=== PATIENT | female | born 1980 | race Caucasian/White ===

== ENCOUNTER → 2017-07-06 | Outpatient (CLI) | payer SELFPAY | PROVIDERS: Family Provider Family Medicine; PCP Family Medicine; Visit Provider Family Medicine | DX: I73.00 Raynaud's syndrome without gangrene (principal) | CPT/HCPCS: 86038 ==

== ENCOUNTER → 2018-04-02 08:01 | Outpatient (CLI) | payer OTHER, SELFPAY ==
[2018-04-02 10:23] LABS: Add Manual Diff / Slide Review NO; Basophils Percent Auto 1.1 % (0-2); Eosinophils Percent Auto 5.6 % (2-4); Hematocrit 39.2 % (36-46); Hemoglobin 13.3 g/dL (12.0-16.0); Lymphocytes Percent Auto 34.1 % (25-40); Mean Corpuscular Volume 94.2 fL (80-100); Monocytes Percent Auto 7.2 % (3-14); Neutrophils Absolute Auto 4100 /uL (3000-5900); Platelet Count 221 X10^3/uL (150-400); Red Blood Cell Count 4.16 X10^6/uL (4.0-5.2); Red Cell Distribution Width 13.2 % (11.6-14.8); White Blood Cell Count 7.8 X10^3/uL (4.5-11.0)
[2018-04-02 10:43] LABS: Appearance Urine UA CLEAR; Bilirubin Urine UA NEGATIVE (NEGATIVE); Color Urine UA YELLOW; Glucose Urine UA NEGATIVE (Normal); Ketones Urine UA NEGATIVE (NEGATIVE); Leukocyte Esterase Urine UA NEGATIVE (NEGATIVE); Nitrite Urine UA Negative (Negative); Occult Blood Urine UA TRACE-LYSED (Negative); Protein Urine UA TRACE (Negative); Specific Gravity Urine UA 1.025 (1.000-1.035); Urobilinogen Urine UA 0.2 E.U./dL (0.2)
[2018-04-02 10:47] LABS: Erythrocyte Sedimentation Rate 4 MM/HR (0-20)
[2018-04-02 10:54] LABS: Alanine Aminotransferase 26 IU/L (9-52); Albumin 4.3 g/dL (3.5-5.0); Albumin Globulin Ratio 1.5 (1.0-2.8); Alkaline Phosphatase 61 U/L (38-126); Aspartate Aminotransferase 25 IU/L (14-36); Bilirubin Total 0.5 mg/dL (0.2-1.3); Blood Urea Nitrogen 14 mg/dL (7-17); Calcium 9.4 mg/dL (8.4-10.2); Carbon Dioxide 23 mmol/L (22-32); Chloride 107 mmol/L (98-107); Cholesterol 169 mg/dL (140-199); Estimated Glomerular Filt Rate > 60.0 mL/min (>60); Globulin 2.9 g/dL (1.7-4.1); Glucose 91 mg/dL (70-100); HDL Cholesterol 53 mg/dL (40-60); HEMOLYSIS 41 (0-50); LDL Cholesterol Calculated 104 mg/dL (<100); Potassium 4.3 mmol/L (3.4-5.1); Sodium 143 mmol/L (137-145); Total Protein 7.2 g/dL (6.3-8.2); Triglycerides 60 mg/dL (35-150)
[2018-04-02 10:55] LABS: C-Reactive Protein Quant < 0.5 mg/dL (<1.0); Rheumatoid Factor < 8.6 IU/mL (<12.0)
[2018-04-02 11:02] LABS: Bacteria Urine Few (2-10); Culture Indicated Urine Cult Not Indicated; RBC Urine 0-1/HPF (0-5/HPF); Squamous Epithelial Cell Urine 5-10 /HPF; WBC Urine 1-5/HPF (0-5/HPF)
[2018-04-02 12:33] LABS: TSH w/ Reflex to FT4 2.77 uIU/mL (0.47-4.68)
[2018-04-03 18:03] LABS: ANA Screen, IFA Negative (Negative)
== END ==
PROVIDERS: PCP Family Medicine; Visit Provider Nurse Practitioner Family
DX: I73.00 Raynaud's syndrome without gangrene (principal)
CPT/HCPCS: 36415; 80053; 80061; 81001; 84443; 85025; 85651; 86038; 86140; 86430

== ENCOUNTER 2019-06-17 10:00 | Emergency (ER) | payer OTHER, MEDICAID, SELFPAY ==
--- NOTE | 2019-06-17 10:09 | DI.RAD.S_ITS ---
PROCEDURE: XR KNEE LT 3V INDICATIONS: injury/pain TECHNIQUE: 3 views of the knee were acquired. COMPARISON: None. FINDINGS: Bones: Mild tricompartment osteoarthritis is seen the prominent a medial femoral tibial compartment. No fractures or dislocations. No suspicious bony lesions. Soft tissues: No joint effusion. No suspicious soft tissue calcifications. IMPRESSION: No acute left knee fracture or dislocation. Mild tricompartmental osteoarthritis. Dictated by: Aime Gloria M.D. on 06/17/2019 at 10:54 Approved by: Aime Gloria M.D. on 06/17/2019 at 10:55
[2019-06-17 10:11] VITALS: BP 137/93; PULSE 90; RESP 14; TEMP 36.8; O2SAT 100
--- NOTE | 2019-06-17 10:27 | ED_ITS ---
HPI - Extremity Injury (Lower) General Chief Complaint: Extremity Injury, Lower Stated Complaint: Left knee pain Time Seen by Provider: 06/17/19 10:04 Source: patient Mode of arrival: Wheelchair History of Present Illness HPI Narrative: 39-year-old female nonsmoker with noncontributory medical history presents with severe left knee pain after an injury while performing [employer]. 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 Patient felt up pop and significant pain on her medial left knee. She has swelling and and inability to straighten her leg. She cannot weight bear and has significant pain. She denies any numbness, tingling or weakness. She denies any history of knee pain MD complaint: knee injury Onset (ago): hour(s) Type of Injury: hyperextension Place: other Severity: moderate Relieving factors: rest Exacerbating factors: weight bearing, movement and palpation Context: direct blow Associated symptoms: snap/pop sensation, swelling and unable to bear weight Other symptoms: none Treatments prior to arrival: cold therapy Related Data Home Medications Medication Instructions Recorded Confirmed multivitamin 1 tab PO DAILY #0 01/25/13 06/17/19 albuterol sulfate [Ventolin HFA] 1 puff INHALATION PRN PRN 06/17/19 06/17/19 alprazolam 0.125 mg PO DAILY PRN 06/17/19 06/17/19 Previous Rx's Medication Instructions Recorded oxycodone 5 mg PO Q4-6H PRN #10 tab 06/17/19 Allergies Allergy/AdvReac Type Severity Reaction Status Date / Time ibuprofen [IBUPROFEN] Allergy Severe PT ONLY Verified 04/19/18 15:45 HAS ONE KIDNEY ciprofloxacin [CIPROFLOXACIN] Allergy Mild DIZZINESS Verified 04/19/18 15:45 acetaminophen [From [facility]] AdvReac Mild Nausea/ Verified 04/19/18 15:45 hot flashes hydrocodone [From [facility]] AdvReac Mild Nausea/ Verified 04/19/18 15:45 hot flashes Review of Systems Constitutional Constitutional: Denies chills, Denies fatigue, Denies fever(s), Denies frequent falls, Denies lethargy and Denies weakness Eyes Eyes: Denies change in vision, Denies eye discharge, Denies irritation and Denies loss of vision ENT Ears, Nose, Mouth, and Throat: Denies change in voice, Denies dizziness, Denies neck pain, Denies sore throat and Denies throat swelling Cardiovascular Cardiovascular: Denies chest pain, Denies irregular heart rhythm, Denies lightheadedness, Denies palpitations, Denies dyspnea, Denies dyspnea on exertion and Denies orthopnea Respiratory Respiratory: Denies cough, Denies dyspnea, Denies dyspnea on exertion and Denies wheezing Gastrointestinal Gastrointestinal: Denies abdominal pain, Denies change in bowel habits, Denies diarrhea, Denies nausea and Denies vomiting Genitourinary Genitourinary: Denies hematuria, Denies flank pain, Denies urinary incontinence and Denies urinary urgency Musculoskeletal Musculoskeletal: Denies back pain, Reports joint swelling, Reports limited range of motion, Denies muscle weakness, Denies neck pain, Denies numbness and Denies tingling Integumentary/Breasts Skin/Breast: Denies pruritus, Denies erythema, Denies rash and Denies wounds Neurologic Neurologic: Denies behavioral changes, Denies confusion, Denies dizziness, Denies frequent falls, Denies loss of vision, Denies numbness, Denies tingling and Denies weakness Psychiatric Psychiatric: Denies anxiety, Denies behavioral changes, Denies confusion, Denies depression, Denies homicidal ideation and Denies suicidal ideation Endocrine Endocrine: Denies fatigue, Denies flushing and Denies palpitations Hematologic/Lymphatic Hematologic/Lymphatic: Denies easy bruising Allergic/Immunologic Allergic/Immunologic: Denies urticaria, Denies throat swelling and Denies wheezing [facility] Medical History Kidney disease (Resolved 1997) Shoulder pain (Chronic 2012) Surgical History History of nephrectomy (Resolved 1999) Status post breast augmentation (Resolved 12/2004) Status post breast augmentation (Resolved 12/2015) Family History Child Age: 8 Asthma Father Age: 79 Cancer Diabetes mellitus Heart disease Hypertension High cholesterol Mother Alzheimer's disease Osteoporosis Social History Smoking Status: Former smoker Family History Child Age: 8 Asthma Father Age: 79 Cancer Diabetes mellitus Heart disease Hypertension High cholesterol Mother Alzheimer's disease Osteoporosis Social History Smoking Status: Former smoker Exam Narrative Exam Narrative: GEN: AOx3 and in mild distress EYES: Pupils are equal, round, and reactive to light and accommodation. Extraoccular muscles are intact bilaterally. There is no subconjunctival hemorrhage or exudate. CHEST: Lungs are clear to auscultation bilaterally and free of wheezes, rales, or rhonchi. Heart rate is regular rhythm, there are no murmurs, clicks, rubs, or gallops. There is no chest wall tenderness. ABD: Abdomen is soft and nontender. There is no guarding or rebound. Bowel sounds are normal in all 4 quadrants. There is no mass or organomegaly. EXT: Decreased range of motion secondary to pain, mild effusion with significant tenderness to palpation along the medial joint line. Neurovascularly intact, closed, isolated SKIN: Warm, pink, and dry. No erythema or rash Initial Vital Signs Initial Vital Signs: Vital Signs Temperature 98.3 F 06/17/19 10:11 Pulse Rate 90 06/17/19 10:11 Respiratory Rate 14 06/17/19 10:11 Blood Pressure 137/93 H 06/17/19 10:11 Pulse Oximetry 100 06/17/19 10:11 Procedures Orthopedic Splinting/Casting Injury #1: Side: left Lower Extremity Injury Location: knee Lower Extremity Immobilizer: knee immobilizer Post splinting neuro exam: intact Post splinting vascular exam: intact Placed by: Nursing Course Orders Ordered: ED Orders 06/17/19 11:55 MR knee LT wo con Stat Vital Signs Vital signs: Vital Signs - 8 hr 06/17/19 13:35 Pulse Rate 66 Respiratory Rate 17 Blood Pressure [Left Arm] 117/72 Pulse Oximetry 99 MDM - Extremity Injury (Lower) Imaging Data Knee Xray: Attestation: I personally reviewed and interpreted this imaging study as follows: My impression: question tibial plateau fracture Radiologist's impression: Grecia Burks H 39 F [address] [address] XRay Report Signed Patient: Grecia Burks R#: [id number] : 1980Acct:[id number] Age/Sex: 39 / FDate of Service: 06/17/19 Loc: ED Accession Number: [id number] Procedure: XR knee LT 3V Ordering Provider: Donta Silver D.O. PROCEDURE: XR KNEE LT 3V INDICATIONS: injury/pain TECHNIQUE: 3 views of the knee were acquired. COMPARISON: None. FINDINGS: Bones: Mild tricompartment osteoarthritis is seen the prominent a medial femoral tibial compartment. No fractures or dislocations. No suspicious bony lesions. Soft tissues: No joint effusion. No suspicious soft tissue calcifications. IMPRESSION: No acute left knee fracture or dislocation. Mild tricompartmental osteoarthritis. Dictated by: Aime Gloria M.D. on 06/17/2019 at 10:54 Approved by: Aime Gloria M.D. on 06/17/2019 at 10:55 Grecia Burks H 39 F 1980 [place] [address] CT Scan Report Signed Patient: VitaliyGrecia ortiz R#: [id number] : 1980Acct:[id number] Age/Sex: 39 / FDate of Service: 06/17/19 Loc: ED Accession Number: [id number] Procedure: CT LE LT wo con Ordering Provider: Donta Silver D.O. PROCEDURE: CT LE LT W CON INDICATIONS: severe Left knee pain, cannot weight bear, abnormal Xray TECHNIQUE: Noncontrast 1-1.5 mm axial sections acquired from the mid-patella to the proximal tibia, with coronal and sagittal reformats. COMPARISON: [facility], , XR KNEE LT 3V, 06/17/2019, 10:27. FINDINGS: Image quality: Excellent. Bones: Alignment of left knee is anatomic. There is small corticated bony fragment involving the anterior medial aspect of lateral tibial plateau near distal ACL insertion site. No other fracture or dislocation is seen. No suspicious intraosseous lesion. No patella subluxation. Mild tricompartmental osteoarthritis is seen. Soft tissues: There is small to moderate amount of suprapatellar joint effusion. No gross fat fluid level is identified. The distal quadriceps tendon and patellar tendon are grossly intact. Posterior cruciate ligament is grossly intact. Anterior cruciate ligament is not well seen on this study. Medial and lateral collateral ligaments are grossly intact. IMPRESSION: 1. Age indeterminant avulsion injury involving anterior medial aspect of lateral tibial plateau near distal ACL insertion site. No definite acute fracture or disl ocation is seen. 2. Small to moderate amount of suprapatellar joint effusion. No fat/fluid level is seen. 3. Distal quadriceps tendon and patellar tendon are grossly intact. PCL is intact the ACL is not well-visualized on this CT study. If indicated, MRI of knee can be done for further evaluation of possible internal derangement. Dictated by: Aime Gloria M.D. on 06/17/2019 at 11:35 Approved by: Aime Gloria M.D. on 06/17/2019 at 11:[address] [address] Magnetic Resonance Report Signed Patient: Grecia Burks HMR#: [id number] : 1980Acct:[id number] Age/Sex: 39 / FDate of Service: 06/17/19 Loc: ED Accession Number: [id number] Procedure: MR knee LT wo con Ordering Provider: Donta Silver D.O. PROCEDURE: MR KNEE LT WO CON INDICATIONS: severe pain, jiu jitsu injury, question fracture on CT TECHNIQUE: Noncontrast sagittal PD fast spin echo and T2 fast spin echo with fat saturation, sagittal 3-D FLASH with fat saturation; coronal T1 spin echo and PD fast spin echo with fat saturation, and axial PD fast spin echo with fat saturation through the knee. COMPARISON: [facility], CT, CT LE LT WO CON, 06/17/2019, 10:56. [facility], CR, XR KNEE LT 3V, 06/17/2019, 10:27. FINDINGS: Image quality: Excellent. Menisci: There is a longitudinal tear along the body of the medial meniscus. Horizontal tear is seen in the posterior horn of the medial meniscus. The anterior root of the the lateral meniscus is abnormal in morphology and signal, consistent with tear. Cruciate ligaments: No acute anterior cruciate ligament tear. There is thickening and striated appearance of the anterior cruciate ligament, likely subacute sequela of chronic tear or mucoid degeneration. The posterior cruciate ligament is intact. Medial structures: The medial collateral ligament appears intact. The semimembranosus tendon insertions and meniscocapsular junction appear intact. Visualized portions of the pes anserinus tendons appear normal. No abnormal bursal fluid. Lateral structures: The lateral collateral ligament and the biceps femoris tendon appear intact. The popliteus tendon appears normal; the popliteofibular ligament appears intact. Iliotibial band appears normal. Anterior structures: The quadriceps and patellar tendons appear intact. Patellar alignment is normal. No femoral trochlear dysplasia or ventral trochlear prominence. No edema in the infrapatellar fat pad. Small moderate of prepatellar bursal fluid suggesting mild bursitis. Bones and cartilage: No bone marrow contusions or fractures. There is a full- thickness cartilage defect in the anterior medial aspect of the tibial eminence near the ACL attachment. A small intra-articular bodies present in this area. Joint space: There is small to moderate knee joint effusion. No Burgos's cyst. A 1.6 x 1.8 cm multilocular cystic structure seen posterior to the distal femur comp atible with a synovial cyst or ganglion cyst. Normal appearing synovial plicae are incidentally noted. IMPRESSION: 1. No acute anterior cruciate ligament tear. ACL appears thickened with striated appearance, likely sequelae of chronic tear or mucoid degeneration. 2. A longitudinal tear of the body of the medial meniscus. There is also horizontal tear of the posterior horn of the medial meniscus. 3. A small full-thickness cartilage defect in the anterior aspect of the medial tibial plateau. A small intra-articular body is noted in the anterior medial aspect of tibial eminence, suggesting old avulsion injury. 4. Small to moderate knee joint effusion. 5. Trace prepatellar bursal fluid suggesting mild bursitis. 6. A 1.6 x 1.8 cm multilocular cyst is seen posterior to the distal femur, compatible with a synovial cyst or ganglion cyst. Dictated by: Tammy Vincent M.D. on 06/17/2019 at 12:45 Approved by: Tammy Vincent M.D. on 06/17/2019 at 13:21 Discharge Plan Departure Patient Disposition: Home Clinical Impression: Acute meniscal tear of knee Qualifiers: Encounter type: initial encounter Laterality: left Qualified Code(s): S83.207A - Unspecified tear of unspecified meniscus, current injury, left knee, initial encounter Discharge Date/Time: 06/17/19 14:10 Instructions: DI for Meniscal Tear Activity Restrictions/Additional Instructions: *You have been diagnosed with [left medial meniscus tear] *What to do: *Take medications as directed *Follow up with [facility] in 2-3 days, call for an appointment. Let them know you were seen in the Emergency Department and that we ask that you be seen in follow up *Return to ER if you should have any new, worsening or concerning symptoms Prescriptions: New oxycodone 5 mg tablet 5 mg PO Q4-6H PRN (Reason: pain) Qty: 10 RF: 0 No Action multivitamin Tablet 1 tab PO DAILY Qty: 0 RF: 0 alprazolam 0.25 mg tablet 0.125 mg PO DAILY PRN (Reason: Anxiety) RF: 0 albuterol sulfate [Ventolin HFA] 90 MCG/PUFF HFA aerosol inhaler 1 puff INHALATION PRN PRN (Reason: Shortness Of Breath) RF: 0 Referrals: Kirit Guajardo MD [Physician] -
--- NOTE | 2019-06-17 10:55 | DI.CT.S_ITS ---
PROCEDURE: CT LE LT W CON INDICATIONS: severe Left knee pain, cannot weight bear, abnormal Xray TECHNIQUE: Noncontrast 1-1.5 mm axial sections acquired from the mid-patella to the proximal tibia, with coronal and sagittal reformats. COMPARISON: [facility], CR, XR KNEE LT 3V, 06/17/2019, 10:27. FINDINGS: Image quality: Excellent. Bones: Alignment of left knee is anatomic. There is small corticated bony fragment involving the anterior medial aspect of lateral tibial plateau near distal ACL insertion site. No other fracture or dislocation is seen. No suspicious intraosseous lesion. No patella subluxation. Mild tricompartmental osteoarthritis is seen. Soft tissues: There is small to moderate amount of suprapatellar joint effusion. No gross fat fluid level is identified. The distal quadriceps tendon and patellar tendon are grossly intact. Posterior cruciate ligament is grossly intact. Anterior cruciate ligament is not well seen on this study. Medial and lateral collateral ligaments are grossly intact. IMPRESSION: 1. Age indeterminant avulsion injury involving anterior medial aspect of lateral tibial plateau near distal ACL insertion site. No definite acute fracture or dislocation is seen. 2. Small to moderate amount of suprapatellar joint effusion. No fat/fluid level is seen. 3. Distal quadriceps tendon and patellar tendon are grossly intact. PCL is intact the ACL is not well-visualized on this CT study. If indicated, MRI of knee can be done for further evaluation of possible internal derangement. Dictated by: Aime Gloria M.D. on 06/17/2019 at 11:35 Approved by: Aime Gloria M.D. on 06/17/2019 at 11:43
--- NOTE | 2019-06-17 11:55 | DI.MRI.S_ITS ---
PROCEDURE: MR KNEE LT WO CON INDICATIONS: severe pain, jiu jitsu injury, question fracture on CT TECHNIQUE: Noncontrast sagittal PD fast spin echo and T2 fast spin echo with fat saturation, sagittal 3-D FLASH with fat saturation; coronal T1 spin echo and PD fast spin echo with fat saturation, and axial PD fast spin echo with fat saturation through the knee. COMPARISON: [facility], CT, CT LE LT WO CON, 06/17/2019, 10:56. [facility], CR, XR KNEE LT 3V, 06/17/2019, 10:27. FINDINGS: Image quality: Excellent. Menisci: There is a longitudinal tear along the body of the medial meniscus. Horizontal tear is seen in the posterior horn of the medial meniscus. The anterior root of the the lateral meniscus is abnormal in morphology and signal, consistent with tear. Cruciate ligaments: No acute anterior cruciate ligament tear. There is thickening and striated appearance of the anterior cruciate ligament, likely subacute sequela of chronic tear or mucoid degeneration. The posterior cruciate ligament is intact. Medial structures: The medial collateral ligament appears intact. The semimembranosus tendon insertions and meniscocapsular junction appear intact. Visualized portions of the pes anserinus tendons appear normal. No abnormal bursal fluid. Lateral structures: The lateral collateral ligament and the biceps femoris tendon appear intact. The popliteus tendon appears normal; the popliteofibular ligament appears intact. Iliotibial band appears normal. Anterior structures: The quadriceps and patellar tendons appear intact. Patellar alignment is normal. No femoral trochlear dysplasia or ventral trochlear prominence. No edema in the infrapatellar fat pad. Small moderate of prepatellar bursal fluid suggesting mild bursitis. Bones and cartilage: No bone marrow contusions or fractures. There is a full-thickness cartilage defect in the anterior medial aspect of the tibial eminence near the ACL attachment. A small intra-articular bodies present in this area. Joint space: There is small to moderate knee joint effusion. No Burgos's cyst. A 1.6 x 1.8 cm multilocular cystic structure seen posterior to the distal femur compatible with a synovial cyst or ganglion cyst. Normal appearing synovial plicae are incidentally noted. IMPRESSION: 1. No acute anterior cruciate ligament tear. ACL appears thickened with striated appearance, likely sequelae of chronic tear or mucoid degeneration. 2. A longitudinal tear of the body of the medial meniscus. There is also horizontal tear of the posterior horn of the medial meniscus. 3. A small full-thickness cartilage defect in the anterior aspect of the medial tibial plateau. A small intra-articular body is noted in the anterior medial aspect of tibial eminence, suggesting old avulsion injury. 4. Small to moderate knee joint effusion. 5. Trace prepatellar bursal fluid suggesting mild bursitis. 6. A 1.6 x 1.8 cm multilocular cyst is seen posterior to the distal femur, compatible with a synovial cyst or ganglion cyst. Dictated by: Tammy Vincent M.D. on 06/17/2019 at 12:45 Approved by: Tammy Vincent M.D. on 06/17/2019 at 13:21
[2019-06-17 13:35] VITALS: BP 117/72; PULSE 66; RESP 17; O2SAT 99
== END 2019-06-17 14:10 | disposition home or self-care (01) ==
PROVIDERS: Emergency Provider Emergency Medicine
DX: S83.207A Unspecified tear of unspecified meniscus, current injury, left knee, initial encounter (principal); Y93.75 Activity, martial arts
CPT/HCPCS: 73562; 73700; 73721; 99283; 99284

== ENCOUNTER 2019-10-04 11:55 | Emergency (ER) | payer OTHER, MEDICAID, SELFPAY ==
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
[2019-10-04 12:08] VITALS: BP 129/78; PULSE 82; RESP 18; TEMP 37.2; O2SAT 100; BMI 20.3
[2019-10-04 12:14] VITALS: BP 129/78; PULSE 80; RESP 19; TEMP 37.2; O2SAT 100
--- NOTE | 2019-10-04 12:26 | DI.CT.S_ITS ---
PROCEDURE: CT CERVICAL SPINE WO CON INDICATIONS: midline bony tenderness after trauma yesterday TECHNIQUE: Noncontrast 3 mm thick sections acquired from the skull base to the T4 level. Sagittal and coronal reformats were then constructed. For radiation dose reduction, the following was used: automated exposure control, adjustment of mA and/or kV according to patient size. COMPARISON: None. FINDINGS: Image quality: Excellent. Bones: No fractures or dislocations. Visualized superior ribs are intact. Mild reversal of normal cervical lordosis is seen centered at C5-6 level. Degenerative endplate changes and decreased intervertebral disc space at C4-5 and C5-6 levels are seen with suggestion of broad-based disc bulge at these levels causing mild central canal stenosis, no significant neural foramina narrowing. Soft tissues: Prevertebral soft tissues are normal in thickness. No paravertebral hematomas. No apical pneumothoraces. IMPRESSION: No acute cervical spine fracture or dislocation. Mild degenerative disc disease and C4-5 and C5-6 levels. Dictated by: Aime Gloria M.D. on 10/04/2019 at 12:46 Approved by: Aime Gloria M.D. on 10/04/2019 at 12:48
--- NOTE | 2019-10-04 12:26 | DI.CT.S_ITS ---
PROCEDURE: CT HEAD/BRAIN WO CON INDICATIONS: trauma, head injury TECHNIQUE: Noncontrast 4.5 mm thick angled axial sections acquired from the foramen magnum to the vertex, with coronal and sagittal reformats. For radiation dose reduction, the following was used: automated exposure control, adjustment of mA and/or kV according to patient size. COMPARISON: None. FINDINGS: Image quality: Excellent. CSF spaces: Basal cisterns are patent. No extra-axial fluid collections. Ventricles are normal in size and shape. Brain: No midline shift. No intracranial masses or hemorrhage. Turner-white matter interface is normal. Skull and face: Calvarium and visualized facial bones are intact, without suspicious lesions. Sinuses: Visualized sinuses and mastoids are clear. IMPRESSION: No CT evidence of acute intracranial pathology. Dictated by: Aime Gloria M.D. on 10/04/2019 at 12:48 Approved by: Aime Gloria M.D. on 10/04/2019 at 12:49
[2019-10-04 12:56] VITALS: BP 116/61; PULSE 81; RESP 16; O2SAT 100
== END 2019-10-04 13:02 | disposition home or self-care (01) ==
PROVIDERS: Emergency Provider Emergency Medicine; PCP Nurse Practitioner Family
DX: S16.1XXA Strain of muscle, fascia and tendon at neck level, initial encounter (principal); S06.0X0A Concussion without loss of consciousness, initial encounter; Y04.2XXA Assault by strike against or bumped into by another person, initial encounter; Y09 Assault by unspecified means
CPT/HCPCS: 70450; 72125; 99284

== ENCOUNTER → 2019-10-22 07:16 | Outpatient (CLI) | payer OTHER, MEDICAID, SELFPAY ==
[2019-10-22 08:26] LABS: Hematocrit 44.3 % (36-46); Hemoglobin 15.1 g/dL (12.0-16.0); Mean Corpuscular HGB Conc 34.1 % (30-36); Mean Corpuscular Hemoglobin 32.2 PG (26-34); Mean Corpuscular Volume 94.4 fL (80-100); Platelet Count 286 X10^3/uL (150-400); Red Blood Cell Count 4.69 X10^6/uL (4.0-5.2); Red Cell Distribution Width 13.2 % (11.6-14.8); White Blood Cell Count 11.4 X10^3/uL (4.5-11.0)
[2019-10-22 08:45] LABS: Alanine Aminotransferase 20 IU/L (<35); Albumin 4.9 g/dL (3.5-5.0); Albumin Globulin Ratio 1.3 (1.0-2.8); Alkaline Phosphatase 63 U/L (38-126); Aspartate Aminotransferase 32 IU/L (14-36); BUN Creatinine Ratio 15.6 (6-22); Bilirubin Total 0.7 mg/dL (0.2-1.3); Blood Urea Nitrogen 14 mg/dL (7-17); Calcium 9.7 mg/dL (8.4-10.2); Carbon Dioxide 23 mmol/L (22-32); Chloride 102 mmol/L (98-107); Cholesterol 228 mg/dL (140-199); Estimated Glomerular Filt Rate > 60.0 mL/min (>60); Globulin 3.8 g/dL (1.7-4.1); Glucose 86 mg/dL (70-100); HDL Cholesterol 55 mg/dL (40-60); HEMOLYSIS < 15 (0-50); LDL Cholesterol Calculated 156 mg/dL (<100); Potassium 4.8 mmol/L (3.4-5.1); Sodium 138 mmol/L (137-145); Total Protein 8.7 g/dL (6.3-8.2); Triglycerides 85 mg/dL (35-150)
[2019-10-22 09:24] LABS: Free T3, Triiodothyronine Free 3.15 pg/mL (2.77-5.27); T4 Total Thyroxine 7.88 ug/dL (5.5-11.0)
[2019-10-22 09:38] LABS: Thyroid Stimulating Hormone 1.04 uIU/mL (0.47-4.68)
[2019-10-24 14:19] LABS: IGA 349 mg/dL (47-310); IGG 1163 mg/dL (600-1640); IGM 126 mg/dL (50-300)
[2019-10-24 15:02] LABS: EBV EBNA Antibody IgG > 600.00 U/mL (< 18.00); EBV Virus IgG Ab > 750.00 U/mL (< 18.00); EBV Virus IgM Ab < 36.00 U/mL (< 36.00)
[2019-10-24 15:21] LABS: Thyroglobulin Antibodies < 1 IU/mL (< 2); Thyroglobulin Level 9.1 ng/mL (2.8-40.9); Thyroid Peroxidase Antibodies 1 IU/mL (< 9)
[2019-10-26 15:30] LABS: Triiodothyronine T3 Reverse 17 ng/dL (8-25)
[2019-10-31 16:26] LABS: ANA Screen, IFA NEGATIVE (NEGATIVE)
== END ==
PROVIDERS: PCP Nurse Practitioner Family; Visit Provider Nurse Practitioner Family
DX: Z00.01 Encounter for general adult medical examination with abnormal findings (principal); R53.83 Other fatigue; Z86.19 Personal history of other infectious and parasitic diseases; F41.9 Anxiety disorder, unspecified; E03.9 Hypothyroidism, unspecified; Z86.39 Personal history of other endocrine, nutritional and metabolic disease
CPT/HCPCS: 36415; 80053; 80061; 82784; 84432; 84436; 84443; 84481; 84482; 85027; 86038; 86376; 86664; 86665; 86800

== ENCOUNTER → 2019-11-22 13:38 | Outpatient (CLI) | payer OTHER, MEDICAID, SELFPAY ==
[2019-11-28 15:41] LABS: EVB Early IgG < 9.00 U/mL (< 9.00)
== END ==
PROVIDERS: PCP Nurse Practitioner Family; Referring Provider Nurse Practitioner Family; Visit Provider Nurse Practitioner Family
DX: R53.83 Other fatigue (principal); M79.7 Fibromyalgia; N92.6 Irregular menstruation, unspecified
CPT/HCPCS: 36415; 82542; 82670; 83001; 84403; 86663

== ENCOUNTER → 2020-04-23 06:45 | Outpatient (CLI) | payer OTHER, MEDICAID, SELFPAY ==
--- NOTE | 2020-04-23 | DI.RAD.S_ITS ---
PROCEDURE: XR FOOT RT MIN 3V INDICATIONS: RIGHT FOOT PAIN TECHNIQUE: 3 views of the foot were acquired. COMPARISON: [facility], , FOOT 3V RIGHT, 05/15/2015, 10:06. FINDINGS: Bones: No fractures or dislocations. 1st MTP joint osteoarthritic changes are seen. No suspicious bony lesions. Soft tissues: No tibiotalar joint effusion. Achilles tendon appears normal. IMPRESSION: 1st MTP joint osteoarthritis. No right foot fracture or dislocation. Dictated by: Aime Gloria M.D. on 04/23/2020 at 9:57 Approved by: Aime Gloria M.D. on 04/23/2020 at 9:57
[2020-04-23 09:14] LABS: Testosterone 39.1 ng/dL (5.71-77.0)
== END ==
PROVIDERS: PCP Nurse Practitioner Family; Referring Provider Nurse Practitioner Family; Visit Provider Nurse Practitioner Family
DX: N95.8 Other specified menopausal and perimenopausal disorders (principal); M79.671 Pain in right foot
CPT/HCPCS: 36415; 73630; 82670; 83001; 84403

== ENCOUNTER → 2020-12-21 07:47 | Outpatient (CLI) | payer OTHER, MEDICAID, SELFPAY ==
[2020-12-21 09:02] LABS: Add Manual Diff / Slide Review NO; Basophils Absolute Auto 100 /uL (0-100); Basophils Percent Auto 1.1 % (0-2); Eosinophils Absolute Auto 400 /uL (0-450); Eosinophils Percent Auto 4.8 % (2-4); Hematocrit 41.9 % (36-46); Lymphocytes Absolute Auto 3100 /uL (1100-4500); Mean Corpuscular HGB Conc 33.4 % (30-36); Mean Corpuscular Hemoglobin 31.5 PG (26-34); Mean Corpuscular Volume 94.4 fL (80-100); Monocytes Absolute Auto 700 /uL (0-900); Monocytes Percent Auto 7.3 % (3-14); Neutrophils Absolute Auto 4800 /uL (1500-7000); Neutrophils Percent Auto 52.8 % (50-75); Platelet Count 270 X10^3/uL (150-400); Red Blood Cell Count 4.44 X10^6/uL (4.0-5.2); Red Cell Distribution Width 13.2 % (11.6-14.8); White Blood Cell Count 9.1 X10^3/uL (4.5-11.0)
[2020-12-21 09:13] LABS: Alanine Aminotransferase 13 IU/L (<35); Albumin 4.6 g/dL (3.5-5.0); Albumin Globulin Ratio 1.6 (1.0-2.8); Alkaline Phosphatase 49 U/L (38-126); Aspartate Aminotransferase 23 IU/L (14-36); BUN Creatinine Ratio 12.8 (6-22); Bilirubin Total 1.2 mg/dL (0.2-1.3); Blood Urea Nitrogen 14 mg/dL (7-17); Calcium 9.9 mg/dL (8.4-10.2); Carbon Dioxide 28 mmol/L (22-32); Chloride 102 mmol/L (98-107); Cholesterol 173 mg/dL (140-199); Estimated Glomerular Filt Rate 55.3 mL/min (>60); Globulin 2.9 g/dL (1.7-4.1); Glucose 90 mg/dL (70-100); HDL Cholesterol 60 mg/dL (40-60); LDL Cholesterol Calculated 100 mg/dL (<100); Potassium 4.7 mmol/L (3.4-5.1); Sodium 137 mmol/L (137-145); Total Protein 7.5 g/dL (6.3-8.2); Triglycerides 63 mg/dL (35-150)
[2020-12-21 09:24] LABS: Follicle Stimulating Hormone 3.95 mIU/mL
[2020-12-21 09:25] LABS: Free T3, Triiodothyronine Free 4.13 pg/mL (2.77-5.27); T4 Total Thyroxine 9.14 ug/dL (5.5-11.0)
[2020-12-21 09:39] LABS: Thyroid Stimulating Hormone 1.38 uIU/mL (0.47-4.68)
[2020-12-21 09:40] LABS: Estradiol, Total 177.2 pg/mL
[2020-12-21 09:48] LABS: HEMOLYSIS < 15 (0-50); Testosterone 45.4 ng/dL (5.71-77.0)
== END ==
PROVIDERS: PCP Nurse Practitioner Family; Referring Provider Nurse Practitioner Family; Visit Provider Nurse Practitioner Family
DX: R53.83 Other fatigue (principal); N95.8 Other specified menopausal and perimenopausal disorders; N95.1 Menopausal and female climacteric states; N92.6 Irregular menstruation, unspecified
CPT/HCPCS: 36415; 80053; 80061; 82670; 83001; 84144; 84403; 84436; 84443; 84481; 85025

== ENCOUNTER 2021-09-17 11:11 | Emergency (ER) | payer OTHER, MEDICAID, SELFPAY ==
[2021-09-17 11:29] VITALS: BP 138/98; PULSE 90; RESP 16; TEMP 36.8; O2SAT 99; BMI 22.4
== END 2021-09-17 11:44 | disposition left against medical advice (07) ==
PROVIDERS: Emergency Provider Emergency Medicine; PCP Nurse Practitioner Family
DX: Z53.21 Procedure and treatment not carried out due to patient leaving prior to being seen by health care provider (principal)
CPT/HCPCS: 99281

== ENCOUNTER → 2021-09-23 14:15 | Outpatient (CLI) | payer OTHER, MEDICAID, SELFPAY ==
[2021-09-23 15:04] LABS: Add Manual Diff / Slide Review NO; Basophils Absolute Auto 100 /uL (0-100); Basophils Percent Auto 0.8 % (0-2); Eosinophils Absolute Auto 200 /uL (0-450); Eosinophils Percent Auto 1.8 % (2-4); Hematocrit 39.6 % (36-46); Hemoglobin 13.3 g/dL (12.0-16.0); Lymphocytes Absolute Auto 2300 /uL (1100-4500); Lymphocytes Percent Auto 20.5 % (25-40); Mean Corpuscular HGB Conc 33.7 % (30-36); Mean Corpuscular Hemoglobin 31.8 PG (26-34); Mean Corpuscular Volume 94.4 fL (80-100); Monocytes Absolute Auto 600 /uL (0-900); Monocytes Percent Auto 5.4 % (3-14); Neutrophils Absolute Auto 8000 /uL (1500-7000); Neutrophils Percent Auto 71.5 % (50-75); Platelet Count 190 X10^3/uL (150-400); Red Blood Cell Count 4.19 X10^6/uL (4.0-5.2); Red Cell Distribution Width 13.7 % (11.6-14.8); White Blood Cell Count 11.2 X10^3/uL (4.5-11.0)
[2021-09-23 15:18] LABS: Iron 134 ug/dL (37-170)
[2021-09-23 15:28] LABS: Percent Iron Saturation 50 % (15-50); Total Iron Binding Capacity 270 ug/dL (265-497)
[2021-09-23 15:55] LABS: Ferritin 23 ng/mL (6-137)
== END ==
PROVIDERS: PCP Nurse Practitioner Family; Referring Provider Nurse Practitioner Family; Visit Provider Nurse Practitioner Family
DX: D64.9 Anemia, unspecified (principal)
CPT/HCPCS: 36415; 82728; 83540; 83550; 85025

== ENCOUNTER → 2021-10-07 15:50 | Outpatient (CLI) | payer OTHER, MEDICAID, SELFPAY | PROVIDERS: PCP Nurse Practitioner Family; Referring Provider Nurse Practitioner Family; Visit Provider Nurse Practitioner Family | DX: N39.0 Urinary tract infection, site not specified (principal) | CPT/HCPCS: 87086 ==

== ENCOUNTER → 2021-11-12 08:22 | Outpatient (CLI) | payer OTHER, MEDICAID, SELFPAY ==
[2021-11-12 10:17] LABS: Add Manual Diff / Slide Review NO; Basophils Absolute Auto 100 /uL (0-100); Basophils Percent Auto 0.5 % (0-2); Eosinophils Absolute Auto 500 /uL (0-450); Eosinophils Percent Auto 4.6 % (2-4); Hematocrit 41.6 % (36-46); Hemoglobin 14.1 g/dL (12.0-16.0); Lymphocytes Absolute Auto 3200 /uL (1100-4500); Lymphocytes Percent Auto 28.5 % (25-40); Mean Corpuscular HGB Conc 33.9 % (30-36); Mean Corpuscular Hemoglobin 32.4 PG (26-34); Mean Corpuscular Volume 95.5 fL (80-100); Monocytes Absolute Auto 800 /uL (0-900); Monocytes Percent Auto 7.5 % (3-14); Neutrophils Absolute Auto 6600 /uL (1500-7000); Neutrophils Percent Auto 58.9 % (50-75); Platelet Count 191 X10^3/uL (150-400); Red Blood Cell Count 4.36 X10^6/uL (4.0-5.2); Red Cell Distribution Width 13.6 % (11.6-14.8); White Blood Cell Count 11.2 X10^3/uL (4.5-11.0)
[2021-11-12 11:20] LABS: HEMOLYSIS 19 (0-50)
[2021-11-12 11:21] LABS: Iron 50 ug/dL (37-170)
[2021-11-12 11:23] LABS: Alanine Aminotransferase 13 IU/L (<35); Albumin 4.2 g/dL (3.5-5.0); Albumin Globulin Ratio 1.6 (1.0-2.8); Alkaline Phosphatase 51 U/L (38-126); Aspartate Aminotransferase 24 IU/L (14-36); BUN Creatinine Ratio 17.9 (6-22); Bilirubin Total 0.3 mg/dL (0.2-1.3); Blood Urea Nitrogen 15 mg/dL (7-17); Calcium 9.3 mg/dL (8.4-10.2); Carbon Dioxide 25 mmol/L (22-32); Chloride 107 mmol/L (98-107); Cholesterol 179 mg/dL (140-199); Estimated Glomerular Filt Rate > 60.0 mL/min (>60); Globulin 2.7 g/dL (1.7-4.1); Glucose 84 mg/dL (70-100); HDL Cholesterol 56 mg/dL (40-60); LDL Cholesterol Calculated 103 mg/dL (<100); Potassium 4.6 mmol/L (3.4-5.1); Sodium 139 mmol/L (137-145); Total Protein 6.9 g/dL (6.3-8.2); Triglycerides 100 mg/dL (35-150)
[2021-11-12 11:33] LABS: Total Iron Binding Capacity 293 ug/dL (265-497)
[2021-11-12 11:40] LABS: Follicle Stimulating Hormone 5.84 mIU/mL; Free T3, Triiodothyronine Free 2.97 pg/mL (2.77-5.27); Free T4, Direct Thyroxine 1.07 ng/dL (0.78-2.19); Progesterone, Total 4.01 ng/mL; T4 Total Thyroxine 7.64 ug/dL (5.5-11.0)
[2021-11-12 11:53] LABS: Thyroid Stimulating Hormone 1.44 uIU/mL (0.47-4.68)
[2021-11-12 11:55] LABS: Estradiol, Total 59.2 pg/mL
[2021-11-12 11:58] LABS: Ferritin 13 ng/mL (6-137); Testosterone 28.5 ng/dL (5.71-77.0)
[2021-11-12 13:39] LABS: Vitamin B12 253 pg/mL (239-931)
[2021-11-19 11:25] LABS: Triiodothyronine T3 Reverse 12.2 ng/dL (9.2-24.1)
== END ==
PROVIDERS: PCP Nurse Practitioner Family; Referring Provider Nurse Practitioner Family; Visit Provider Nurse Practitioner Family
DX: N95.8 Other specified menopausal and perimenopausal disorders (principal); N92.6 Irregular menstruation, unspecified; R53.83 Other fatigue; Z72.4 Inappropriate diet and eating habits
CPT/HCPCS: 36415; 80053; 80061; 82607; 82670; 82728; 83001; 83540; 83550; 84144; 84403; 84436; 84439; 84443; 84481; 84482; 85025

== ENCOUNTER → 2021-11-24 09:28 | Outpatient (CLI) | payer OTHER, MEDICAID, SELFPAY | PROVIDERS: PCP Nurse Practitioner Family; Referring Provider Nurse Practitioner Family; Visit Provider Nurse Practitioner Family | DX: R19.7 Diarrhea, unspecified (principal); D72.10 Eosinophilia, unspecified ==